=== PATIENT | male | born 1975 | race Caucasian/White ===

== ENCOUNTER 2024-09-20 21:43 | Emergency (ER) | payer BC, SELFPAY ==
[2024-09-20 21:59] VITALS: BP 151/92; PULSE 119; RESP 18; TEMP 36.2; O2SAT 95; BMI 28.9
--- NOTE | 2024-09-20 22:46 | ED.GENADULT ---
HPI - General Adult General Date Seen: 09/20/24 Chief complaint: Laceration/Wound Stated complaint: split lip Time Seen by Provider: 09/20/24 21:48 Source: patient Mode of arrival: ambulatory Limitations: no limitations History of Present Illness HPI narrative: Patient is a 49-year-old here with a lip laceration. He was playing basketball, fell and his front teeth went through his lip. He has a cut on the inside of his lip, also a cut on the outside. Teeth feel stable, he says actually 1 of his central incisors was knocked out in a similar injury playing volleyball many many years ago. Teeth all feel stable though. No loss of consciousness or other complaints. No allergies. 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 Related Data Home Medications ?Medication ?Instructions ?Recorded ?Confirmed omeprazole 40 mg capsule,delayed 40 mg PO DAILY 09/20/24 09/20/24 release Previous Rx's ?Medication ?Instructions ?Recorded amoxicillin 875 mg-potassium 1 tab PO BID #10 tabs 09/20/24 clavulanate 125 mg tablet Allergies Allergy/AdvReac Type Severity Reaction Status Date / Time No Known Drug Allergies Allergy Verified 09/20/24 22:15 Exam Narrative: Exam Narrative: Vital signs reviewed. He notes feeling kind of anxious on arrival. Head: Normocephalic. Eyes: Pupils equal reactive. ENT: He has about a 1 cm laceration just above the vermilion border of his upper lip. There is a laceration on the inside as well. Teeth are stable. No other facial trauma, no bony tenderness. Neurologic: He is alert, conversant, gait stable. Const: Vital Signs, click to edit/add: Vital Signs - 24 hr 09/20/24 21:59 Temperature 97.1 F L Pulse Rate [Pulse Oximeter] 119 H Respiratory Rate 18 Blood Pressure [Ri ght Upper Arm] 151/92 H Pulse Oximetry 95 Oxygen Delivery Me thod Room Air Documenting provider has reviewed patient's vital signs: yes Course Course ED Course: We talked about repair of this, he would just like to leave stitches out of the buccal mucosa which I think is reasonable. Procedure note: Wound was anesthetized using lidocaine with epinephrine, cleaned and explored. It was closed using 6 0 nylon, 4 total superficial simple interrupted sutures were placed. Tolerated well without immediate complication. Will put him on some Augmentin for a few days. He understands suture care, removal in 5-7 days, return for infection. Vital Signs Vital signs: Initial Vital Signs Temperature 97.1 F L 09/20/24 21:59 Temperature Source Temporal Artery Scan 09/20/24 21:59 Pulse Rate 119 H 09/20/24 21:59 Respiratory Rate 18 09/20/24 21:59 Blood Pressure 151/92 H 09/20/24 21:59 Blood Pressure Mean 111 H 09/20/24 21:59 Blood Pressure Position Sitting 09/20/24 21:59 Pulse Oximetry 95 09/20/24 21:59 Oxygen Delivery Method Room Air 09/20/24 21:59 Vital Signs Temperature 97.1 F L 09/20/24 21:59 Pulse Rate 119 H 09/20/24 21:59 Respiratory Rate 18 09/20/24 21:59 Blood Pressure 151/92 H 09/20/24 21:59 Pulse Oximetry 95 09/20/24 21:59 Oxygen Delivery Method Room Air 09/20/24 21:59 Temperature 97.1 F L 09/20/24 21:59 Pulse Rate 119 H 09/20/24 21:59 Respiratory Rate 18 09/20/24 21:59 Blood Pressure 151/92 H 09/20/24 21:59 Pulse Oximetry 95 09/20/24 21:59 Oxygen Delivery Method Room Air 09/20/24 21:59 Discharge Plan Discharge Clinical Impression: Complex laceration of circumoral region of face Patient Disposition: Home, Self-Care Prescriptions: New amoxicillin-pot clavulanate 875-125 mg tablet 1 tab PO BID Qty: 10 0RF No Action omeprazole 40 mg capsule,delayed release(DR/EC) 40 mg PO DAILY Follow Up/Referrals: Yazmin Cook, CHIEF EXECUTIVE OR MANAGING DIRECTOR [Primary Care Provider] - Stand Alone Forms: MyHealth Info Instructions
== END 2024-09-20 22:52 | disposition home or self-care (01) ==
PROVIDERS: Emergency Provider Emergency Medicine; PCP Nurse Practitioner Family
DX: S01.511A Laceration without foreign body of lip, initial encounter (principal); W22.8XXA Striking against or struck by other objects, initial encounter; Y93.67 Activity, basketball
CPT/HCPCS: 12011; 99283

== ENCOUNTER 2025-08-22 09:24 | Outpatient (CLI) | payer BC, SELFPAY ==
--- NOTE | 2025-08-22 10:55 | P.ANES_ITS ---
Anesthesia Charges Start Date/Time Anesthesia Start Date: 08/22/25 Anesthesia Start Time: 09:55 Stop Date/Time Anesthesia Stop Date: 08/22/25 Anesthesia Stop Time: 10:52 Coding CPT Codes CPT Codes: ANES UPR LWR GI NDSC PX - 42419 ([id number]) P1 - NORMAL HEALTHY PATIENT, QK - PRECIPITATION EQUIPMENT TENDER 2-4 CNCRNT ANES PROC, QX - FLORAL MANAGER SVC W/ MED DIRECTION
--- NOTE | 2025-08-22 10:55 | W.ANESCHARGE ---
Anesthesia Charges Start Date/Time Anesthesia Start Date: 08/22/25 Anesthesia Start Time: 09:55 Stop Date/Time Anesthesia Stop Date: 08/22/25 Anesthesia Stop Time: 10:52 Coding CPT Codes CPT Codes: ANES UPR LWR GI NDSC PX - 41015 ([id number]) P1 - NORMAL HEALTHY PATIENT, QK - SPECIAL FORCES SPECIALIST 2-4 CNCRNT ANES PROC, QX - ATTACHE SVC W/ MED DIRECTION
--- NOTE | 2025-08-22 12:07 | P.ANES_ITS ---
Anesthesia Charges Start Date/Time Anesthesia Start Date: 08/22/25 Anesthesia Start Time: 09:55 Stop Date/Time Anesthesia Stop Date: 08/22/25 Anesthesia Stop Time: 10:52 Coding CPT Codes CPT Codes: ANES UPR LWR GI NDSC PX - 42359 ([id number]) QK - USER INTERFACE DESIGNER 2-4 CNCRNT ANES PROC, P1 - NORMAL HEALTHY PATIENT, QX - ELECTRICAL HIGH TENSION TESTER SVBriseyda W/ MED DIRECTION
--- NOTE | 2025-08-22 12:07 | W.ANESCHARGE ---
Anesthesia Charges Start Date/Time Anesthesia Start Date: 08/22/25 Anesthesia Start Time: 09:55 Stop Date/Time Anesthesia Stop Date: 08/22/25 Anesthesia Stop Time: 10:52 Coding CPT Codes CPT Codes: ANES UPR LWR GI NDSC PX - 35678 ([id number]) QK - NOC ENGINEER 2-4 CNCRNT ANES PROC, P1 - NORMAL HEALTHY PATIENT, QX - CHURN DRILL OPERATOR SVBriseyda W/ MED DIRECTION
== END 2025-08-22 09:25 | disposition home or self-care (01) ==
LOC: OP CLINIC 09:26
PROVIDERS: PCP Nurse Practitioner Family; Visit Provider Surgery
DX: Z12.11 Encounter for screening for malignant neoplasm of colon (principal); K21.9 Gastro-esophageal reflux disease without esophagitis; R13.10 Dysphagia, unspecified; D12.3 Benign neoplasm of transverse colon
CPT/HCPCS: 00813; 43239; 45385; 88305; J2704; J3490